=== PATIENT | female | born 1975 ===

== ENCOUNTER 2021-04-12 15:56 | Inpatient (IN) | payer SELFPAY ==
[2021-04-12 16:06] VITALS: BP 148/75; PULSE 68; RESP 18; TEMP 37.1; O2SAT 99
[2021-04-12 16:07] VITALS: BMI 36.0
--- NOTE | 2021-04-12 17:31 | PC.NURSE ---
Patient is a 45 year old female, that presents from an [facility] facility for SI thoughts. Patient states that she has a lot of depression and stress going on. She was recently living with her sister in law however today she was stated that she was needing a ride and accidently cut her wrist on a knife she had found. Patient is tearful during admission.
[2021-04-12] MEDS: nicotine 21 mg Patch 1 PATCH TRANSDERMA (17:57)
[2021-04-12 21:03] VITALS: BP 101/61; PULSE 92; RESP 18; TEMP 36.6; O2SAT 98
[2021-04-12] MEDS: trazodone 50 mg Tablet PO (21:57)
--- NOTE | 2021-04-13 00:52 | PC.NURSE ---
wrist pain/bruising from handcuffs, pt's hand is bruised and discolored from being in handcuffs, reports tingling and pain, would like an xray to confirm that it is not broken.
[2021-04-13 06:00] VITALS: BP 116/74; PULSE 83; RESP 16; TEMP 36.3; O2SAT 97
[2021-04-13] MEDS: nicotine 21 mg Patch 1 PATCH TRANSDERMA (09:45)
--- NOTE | 2021-04-13 13:46 | P.HP_ITS ---
Providers/Chief Complaint Admitting Physician: Konrad Cast MD Chief Complaint: Psychosis HPI NPU History of Present Illness Gala Power is a 45 year old female who presented to an outside hospital who reported that she was paranoid sitting in the corner of the room refusing to get on bed, at times standing, pacing, rocking, standing in doorway. They noted alcohol and methamphetamine use at previous rehab. They identified concern for inpatient hospitalization and referred her to [facility] [place]. The patient has laceration on her left wrist, which she reported she did have aggression, denied that it was a suicide attempt. The outside hospital noted that the last laceration could be sutured, but she had been intermittently angry and paranoid and not engaging in treatment. She was determined to need inpatient services and was transferred to [facility] for definitive treatment. She presents here today endorsing that she has never had a psychiatric hospitalization, and that she has not had outpatient services, though she did have outpatient drug and alcohol services. She has never been on medication long-term and denies any suicide attempts other than an overdose on Tylenol when she was 15 years old, that she said was like fourteen pills. She smokes about a half pack of cigarettes a day, denies regular alcohol use, but does drink, denies marijuana use, cocaine use, but does endorse methamphetamine and opiate history. She reports she had a rehab stay in 2014 for her heroin use and reports she had some significant difficulties with methamphetamine but had not used for a while but did relapse a couple weeks ago. She reports that her identified she was acting strange and left her at that time and she started using methamphetamine daily but reports she has not used for a week. She reports that she is not sure why she started using again, then she had this strange circumstance where she went and stayed at a hotel and then walked to a gas station, and then was kind o f disoriented to certain degrees about where she was going and what she was doing, and that elicited different individuals and then the police got involved. At the outside hospital, she did have a drug screen that was positive for amphetamines. She denied use in the last week but identified with her that would not make sense if her last use was a week ago for her to have a positive methamphetamine five days later. She denies any need for inpatient services, is resistant to identifying a need for outpatient services or drug and alcohol treatment and reports a desire to be discharged with her as soon as possible. PSYCHIATRIC HISTORY: As above. SUBSTANCE ABUSE HISTORY: As above. FAMILY HISTORY: She denies mental health issues on mom or dad?s side but does endorse addiction issues on mom?s side including mom and denies any suicide attempts or completions in the family. DEVELOPMENTAL HISTORY: She denies any issues surrounding her mom?s with or delivery, she learned to walk and talk and met her developmental milestones on time, she reports she did not require speech therapy, learning support, emotional support, or special education classes while in school. PSYCHOSOCIAL HISTORY: Her parents were together when she was born, and she has a younger sister that is the product of that union. Her mother did not have any other children, but her dad had three. She reports her childhood was normal and denied emotional, physical, or sexual abuse, but she reports that there was a point where she stayed with her grandmother for a period of time because her mother was using drugs and homeless. She graduated from high school and has had college and a few different certificates and is working on her bachelor?s degree in social work. She endorses being heterosexual with her longest relationship being eight years. She has been three times and twice, she has three children, a 26-year-old son, 25-year-old girl, and a 17-year-old boy, she denies any service and endorses being a Gnosticist. 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 LEGAL HISTORY: She reports she has been in [facility] for ten days on an overdue traffic citation. MEDICAL HISTORY: She denies any significant medical issues. Meds NPU Home Medications Medication Instructions Recorded Confirmed Last Taken Type No Known Home Medications 04/14/21 04/14/21 Unknown History Allergies Allergy/AdvReac Type Severity Reaction Status Date / Time No Known Allergies Allergy Verified 04/12/21 21:57 Mental Status Exam MSE Comments: This is an overweight, versus obese, white female, in hospital scrubs with adequate grooming, and eye contact. No abnormal movements except for mild psychomotor retardation. Cooperative with exam in no acute distress. Speech was slightly decreased rate and volume. Mood described as good; affect euthymic. Thought process, organized. Thought content: patient denied any suicidal or homicidal ideation, there were no delusions reported or noted, patient denied any auditory or visual hallucinations. Attention, concentration, and memory appear intact but were not formally tested. He is alert and oriented times three. Insight and judgment are limited. Impulse control limited. Vitals/I&O/Wt Last Vital Signs Temp 97.3 F L 04/13/21 06:00 Pulse 83 04/13/21 06:00 Resp 16 04/13/21 06:00 BP 116/74 04/13/21 06:00 Pulse Ox 97 04/13/21 06:00 Weight last 48 hrs Weight 95.254 kg A&P Assessment and plan (1) Methamphetamine addiction: Status: Acute (2) Psychosis: Status: Acute (3) Marital/partner relational problem: Status: Acute (4) Adjustment disorder with mixed disturbance of emotions and conduct: Status: Acute Additional A&P Information This is a 45-year-old, white female, with long history of addiction, but limited mental health treatment, who presents with active addiction, though she is downplaying her addiction and recent run-in with the police, that she also downplayed quite a bit, who presents reporting that she just desires to be discharged. RECOMMENDATION AND PLAN: 1. Continue current medication. 2. Encourage individual, group, and milieu therapy. 3. Continue q-15 minute checks for safety. 4. Will get additional collateral information regarding her presentation from and others, but at this point would like to monitor at least another day given the significance of the interaction with the police. Involuntary Hold Information 96 Hour Hold: 96 Hour Involuntary Admission: No Attestations NPU Medical Necessity Statement*: Inpatient hospitalization is medically necessary and the clinically appropriate intervention, at this time. We will monitor medications and make changes as indicated. Patient will be in the hospital for over two midnights. Likely length of stay is two to four days. Coding Level of Care Code Acute [employer] for Eloise Dumont Diagnoses Methamphetamine addiction F15.20 Psychosis F29 Marital/partner relational problem Z63.0 Adjustment disorder with mixed disturbance of emotions and conduct F43.25
[2021-04-13 14:00] VITALS: BP 125/78; PULSE 118; RESP 18; TEMP 36.8; O2SAT 100
--- NOTE | 2021-04-13 14:45 | NPU.GN ---
[facility] Topic:Depression General Mood of Group: Gala did not attend group, she stated that she was gave a medication to help her to sleep last night and she was drowsy. This was confirmed with the nurse that she received medication.
[2021-04-13 22:00] VITALS: BP 123/90; PULSE 93; RESP 18; TEMP 36.5; O2SAT 98
[2021-04-14 06:00] VITALS: BP 143/96; PULSE 86; RESP 18; TEMP 37.5; O2SAT 96
--- NOTE | 2021-04-14 11:29 | P.DS_ITS ---
Diagnoses at Discharge Discharge Diagnosis (1) Methamphetamine addiction: Status: Acute (2) Psychosis: Status: Acute (3) Marital/partner relational problem: Status: Acute (4) Adjustment disorder with mixed disturbance of emotions and conduct: Status: Acute Reason for Visit Reason for Visit: Psychosis Brief History: History of Present Illness Gala Power is a 45 year old female who presented to an outside hospital who reported that she was paranoid sitting in the corner of the room refusing to get on bed, at times standing, pacing, rocking, standing in doorway. They noted alcohol and methamphetamine use at previous rehab. They identified concern for inpatient hospitalization and referred her to [facility]. The patient has laceration on her left wrist, which she reported she did have aggression, denied that it was a suicide attempt. The outside hospital noted that the last laceration could be sutured, but she had been intermittently angry and paranoid and not engaging in treatment. She was determined to need inpatient services and was transferred to [facility] for definitive treatment. She presents here today endorsing that she has never had a psychiatric hospitalization, and that she has not had outpatient services, though she did have outpatient drug and alcohol services. She has never been on medication long-term and denies any suicide attempts other than an overdose on Tylenol when she was 15 years old, that she said was like fourteen pills. She smokes about a half pack of cigarettes a day, denies regular alcohol use, but does drink, denies marijuana use, cocaine use, but does endorse methamphetamine and opiate history. She reports she had a rehab stay in 2014 for her heroin use and reports she had some significant difficulties with methamphetamine but had not used for a while but did relapse a couple weeks ago. She reports that her identified she was acting strange and left her at that time and she started using methamphetamine daily but reports she has not used for a week. She reports that she is not sure why she started using again, then she had this strange circumstance where she went and stayed at a hotel and then walked to a gas station, and then was kind of disoriented to certain degrees about where she was going and what she was doing, and that elicited different individuals and then the police got involved. At the outside hospital, she did have a drug screen that was positive for amphetamines. She denied use in the last week but identified with her that would not make sense if her last use was a week ago for her to have a positive methamphetamine five days later. She denies any need for inpatient services, is resistant to identifying a need for outpatient services or drug and alcohol treatment and reports a desire to be discharged with her as soon as possible. PSYCHIATRIC HISTORY: As above. SUBSTANCE ABUSE HISTORY: As above. FAMILY HISTORY: She denies mental health issues on mom or dad?s side but does endorse addiction issues on mom?s side including mom and denies any suicide attempts or completions in the family. DEVELOPMENTAL HISTORY: She denies any issues surrounding her mom?s with or delivery, she learned to walk and talk and met her developmental milestones on time, she reports she did not require speech therapy, learning support, emotional support, or special education classes while in school. PSYCHOSOCIAL HISTORY: Her parents were together when she was born, and she has a younger sister that is the product of that union. Her mother did not have any other children, but her dad had three. She reports her childhood was normal and denied emotional, physical, or sexual abuse, but she reports that there was a point where she stayed with her grandmother for a period of time because her mother was using drugs and homeless. She graduated from high school and has had college and a few different certificates and is working on her bachelor?s degree in social work. She endorses being heterosexual with her longest relationship being eight years. She has been three times and twice, she has three children, a 26-year-old son, 25-year-old girl, and a 17-year-old boy, she denies any service and endorses being a Zoroastrianism. 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 LEGAL HISTORY: She reports she has been in long term for ten days on an overdue traffic citation. MEDICAL HISTORY: She denies any significant medical issues. Hospital Course Hospital Course She quickly acclimated to the individual, group and milieu therapy was provided. She clearly had substantial resolution of the psychosis that led to the hospitalization. And was not interesting in starting any medication but was open to referrals. We did not start any new medications and she was able to contract for safety outside the hospital. Prior to hospitalization at [facility], patient had routine laboratory studies which were within normal limits except for few outliers and additionally there was a general medical evaluation which was also within normal limits and revealed no new acute processes. Discharge Summary: At the time of discharge, she was absent psychosis or lethality. Mood and anxiety were well managed. Patient endorsed a plan to avoid all drugs of abuse and follow-up with the aftercare recommendations of the treatment team. Patient was evaluated and deemed to be absent credible lethality, and had achieved the maximum benefit from an inpatient hospitalization, so was discharged. Involuntary Hold Information 96 Hour Hold: 96 Hour Involuntary Admission: No Mental Status Exam MSE Comments: This is an overweight, versus obese, white female, in hospital scrubs with adequate grooming, and eye contact. No abnormal movements. Cooperative with exam in no acute distress. Speech was slightly decreased rate and volume. Mood described as good; affect euthymic. Thought process, organized. Thought content: patient denied any suicidal or homicidal ideation, there were no delusions reported or noted, patient denied any auditory or visual hallucinations. Attention, concentration, and memory appear intact but were not formally tested. He is alert and oriented times three. Insight and judgment ap pear fair. Impulse control limited, but improving. Discharge Data Vitals: Last Vital Signs Temp 99.5 F 04/14/21 06:00 Pulse 86 04/14/21 06:00 Resp 18 04/14/21 06:00 BP 143/96 04/14/21 06:00 Pulse Ox 96 04/14/21 06:00 Discharge Plan Discharge Patient Disposition: Home Condition: Stable Prescriptions: New trazodone 50 mg Tablet 50 mg PO BEDTIME PRN (Reason: Sleep) 30 Days Qty: 30 RF: 1 Discharge Orders: Discharge Order (Routine); Ordered 04/14/21 Ordered By: Konrad Cast Referrals: [facility] [Other] (Called to schedule an appointment at your earliest convenience.) Discharge Diet: Regular Discharge Activity: Resume usual activity Patient Instructions: Trazodone (By mouth), Methamphetamine (By mouth), Mood Disorders (DC), Opioid Safety Discharge Attestations NPU Time Spent in Discharge Care*: less than 30 min Specific Discharge Activities: Specific discharge activities: educating patient, discussing with case management coordinator/social workers/dc planners, documenting/other paperwork and evaluating patient/reviewing data Coding Level of Care Code Acute Chg FW DC note Diagnoses Methamphetamine addiction F15.20 Psychosis F29 Marital/partner relational problem Z63.0 Adjustment disorder with mixed disturbance of emotions and conduct F43.25
[2021-04-14 11:31] VITALS: BP 143/96; PULSE 86; RESP 18; TEMP 37.5; O2SAT 96
--- NOTE | 2021-04-14 12:16 | NPU.GN ---
[facility] Topic: self medicating General Mood of Group: Gala came to group late, participated a little and left early. She said she did need any help and she was going home to her . CSS asked if she found that she self medicates when she is anxious, stressed or depressed. Gala said no and I'm good. CSS encourage her to talk to the Doctor or hospice social worker if she changed her mind.
== END 2021-04-14 14:56 | disposition home or self-care (01) | DRG 897 ==
PROVIDERS: Admitting Provider Psychiatry & Neurology Psychiatry; Visit Provider Psychiatry & Neurology Psychiatry
DX: F15.20 Other stimulant dependence, uncomplicated (principal); F43.25 Adjustment disorder with mixed disturbance of emotions and conduct; F29 Unspecified psychosis not due to a substance or known physiological condition; F17.210 Nicotine dependence, cigarettes, uncomplicated; Z81.1 Family history of alcohol abuse and dependence; Z63.0 Problems in relationship with spouse or partner